=== PATIENT | male | born 1960 | race Asian ===

== ENCOUNTER 2018-04-28 19:29 | Emergency (ER) | payer MEDICAID ==
[~2018-04-28] VITALS: Ht 134.6 cm; Wt 68.0 kg
[~2018-04-28 19:29] MED LIST: DOXY100T2 PO; ESOM40CA30 PO
[2018-04-28 19:34] VITALS: BP 171/94
[2018-04-28] MEDS ORDERED: acetaminophen 325mg tablet PO ONE (20:30)
[2018-04-28] MEDS ORDERED: ketorolac trometh inj. 60 MG/2 ML VIAL IM ONE (20:30)
[2018-04-28] MEDS ORDERED: LIDOcaine 5% patch TP ONE (20:30)
[2018-04-28] MEDS ORDERED: cyclobenzaprine 10mg tablet PO ONE (20:35)
[2018-04-28 21:00] LABS: CLARITY,URINE CLEAR (Clear); COLOR,URINE YELLOW (Yellow); GLUCOSE, URINE NEGATIVE (Neg); KETONES,URINE NEGATIVE (Neg); LEUKOCYTE ESTERASE ,URINE NEGATIVE (Neg); NITRITES, URINE NEGATIVE (Neg); OCCULT BLOOD,URINE TRACE-INTACT (Neg); PH,URINE 6.5 (4.8-8.0); PROTEIN,URINE NEGATIVE (Neg); UROBILINOGEN,URINE 0.2 E.U/dL (0.2-1.0)
[2018-04-28 21:01] LABS: UA COLLECTION TYPE CLN CATCH MIDSTREAM
[2018-04-28 21:07] LABS: SQUAMOUS EPITHELIAL CELL,UR FEW /LPF (FEW)
[2018-04-28 21:08] LABS: BACTERIA,URINE NONE SEEN /HPF (Neg); RBC,URINE 0-2 /HPF (0-2); WBC,URINE 0-4 /HPF (0-4)
[2018-04-28] MEDS ORDERED: LIDO700A32 TP (21:24)
[2018-04-28] MEDS ORDERED: CYCL-1 PO (21:24)
== END 2018-04-28 21:44 | disposition home or self-care (01) ==
LOC: ER 19:30
DX: M54.5 Low back pain (principal); I10 Essential (primary) hypertension; Z88.0 Allergy status to penicillin
CPT/HCPCS: 81001; 96372; 99283; J1885

== ENCOUNTER 2021-02-02 06:55 | Day surgery (SDC) | payer MEDICAID ==
[2021-01-26 10:40] LABS: BASOPHILS # (AUTO) 0.1 X10'3 (0-0.2); BASOPHILS % (AUTO) 0.9 % (0-1); EOSINOPHILS # (AUTO) 0.2 X10'3 (0-0.9); LYMPHOCYTES # (AUTO) 2.1 X10'3 (1.1-4.8); LYMPHOCYTES % (AUTO) 30.3 % (21-51); MEAN CORPUSCULAR HEMOGLOBIN 30.4 PG (27.0-31.0); MEAN CORPUSCULAR HGB CONC 33.7 g/dL (33.0-36.5); MEAN CORPUSCULAR VOLUME 90.1 FL (78-98); MONOCYTES # (AUTO) 0.8 X10'3 (0-0.9); MONOCYTES % (AUTO) 11.5 % (2-12); NEUTROPHILS # (AUTO) 3.8 X10'3 (1.8-7.7); NEUTROPHILS % (AUTO) 54.3 % (42-75); PRE OP HEMATOCRIT 48.5 % (42.0-52.0); PRE OP HEMOGLOBIN 16.4 g/dL (14.0-17.9); PRE OP PLATELET COUNT 224 X10'3 (140-440); RED BLOOD COUNT 5.39 X10'6 (4.70-6.10); RED CELL DISTRIBUTION WIDTH 14.1 % (11.5-14.5)
[2021-01-26 10:55] LABS: ALBUMIN 3.5 G/DL (3.4-5.0); ALKALINE PHOSPHATASE 68 IU/L (46-116); BLOOD UREA NITROGEN 14 MG/DL (7-18); BUN/CREATININE RATIO 15.1 (5.4-32.0); CALCIUM 8.6 MG/DL (8.5-10.1); CHLORIDE 106 MMOL/L (99-107); CREATININE 0.93 MG/DL (0.60-1.10); PRE OP ALT 30 U/L (30-65); PRE OP ANION GAP 8 (8-16); PRE OP AST 22 U/L (10-37); PRE OP BILIRUB, TOTAL 0.6 MG/DL (0.0-1.0); PRE OP GLUCOSE 104 MG/DL (70-104); PRE OP POTASSIUM 3.6 MMOL/L (3.4-5.1); PRE OP SODIUM 143 MMOL/L (135-145); eGFR 83 ML/MIN
[2021-01-26 11:05] LABS: TOTAL PROTEIN 7.1 G/DL (6.4-8.2)
[~2021-02-02] VITALS: Ht 152.4 cm; Wt 61.6 kg
[2021-02-02] VITALS (13 sets, daily range): BP systolic 140–174; BP diastolic 72–101
[~2021-02-02 06:55] MED LIST changes: -DOXY100T2 PO; -ESOM40CA30 PO; +GABA600T13 PO; +IBUP-1984 PO; +KEN0.1O TP; +OMEP-50 PO; +SERT-433 PO; +albuterol 2.5 MG/3 ML nebule NEB PRN; +cefazolin/dext.iso 2gm/100ml IV ONE; +famotidine 20mg tablet PO ONE; +ringers solution, lacted 1,000 ML IV SCH
[2021-02-02] MEDS ORDERED: morphine 2 MG/ML inj. syringe IV PRN (09:00)
[2021-02-02] MEDS ORDERED: ondansetron/PF 4mg/2ml inj IV PRN (09:00)
[2021-02-02] MEDS ORDERED: ringers solution, lacted 1,000 ML IV SCH (09:00)
[2021-02-02] MEDS ORDERED: proCHLORperazine 10 MG/2 ml inj IV PRN (09:00)
[2021-02-02] MEDS ORDERED: morphine 4 MG/ML inj SYRINge IV PRN (09:00)
[2021-02-02] MEDS ORDERED: meperidine/PF 25mg/ml syringe IV PRN ×3 (09:00)
[2021-02-02] MEDS ORDERED: LIDOcaine 1% 30ml preserv. free vial ONE (09:31)
[2021-02-02] MEDS ORDERED: BUPIVAcaine/PF 2.5mg/ml (0.25%) 10ml vial ONE (09:31)
[2021-02-02] MEDS ORDERED: sevoflurane 250ml liquid IH ONE (09:46)
[2021-02-02] MEDS ORDERED: midazolam 1 mg/ML 2ml injection ONE (09:48)
[2021-02-02] MEDS ORDERED: propofol inj 20 ML IV ONE (09:48)
[2021-02-02] MEDS ORDERED: fentaNYL/PF 50MCG/1 ML 2ML syringe ONE (09:48)
[2021-02-02] MEDS ORDERED: rocuronium 10mg/ml inj IV ONE (09:48)
[2021-02-02] MEDS ORDERED: ondansetron/PF 4mg/2ml inj ONE (10:50)
[2021-02-02] MEDS ORDERED: dexamethasone sod phosphate 4mg/ml inj. ONE (10:50)
[2021-02-02] MEDS ORDERED: neostigmine methylsulfate 1 MG/ML 10ml vial ONE (10:51)
[2021-02-02] MEDS ORDERED: glycopyrrolate 0.2mg/ml inj ONE (10:51)
[2021-02-02] MEDS ORDERED: HYDROcodone/acetaminophen 5mg/325mg tablet PO PRN ×2 (10:55)
--- NOTE | 2021-02-02 10:56 | NUR ---
Received from OR via [facility] IN STABLE CONDITION , accompanied by Anesthesiologist and MANAGER PHILOSOPHY report given by MANAGER PHILOSOPHY AND Anesthesiolgist. Addendum: 02/02/21 at 1120 by Vivienne Wells RN Amended: Links added.
--- NOTE | 2021-02-02 12:56 | NUR ---
PATIENT DISCHARGED FROM PACU IN STABLE CONDITION AFTER DISCHARGE INSTRUCTIONS GIVEN. PATIENT LEFT FACILITY VIA WHEELCHAIR WITH RN. Addendum: 02/02/21 at 1319 by Vivienne Wells RN Amended: Links added.
== END 2021-02-02 12:56 | disposition home or self-care (01) ==
LOC: PAS 06:55
PROVIDERS: ATTEND Surgery
DX: K40.20 Bilateral inguinal hernia, without obstruction or gangrene, not specified as recurrent (principal); F17.210 Nicotine dependence, cigarettes, uncomplicated; Z88.0 Allergy status to penicillin; K21.9 Gastro-esophageal reflux disease without esophagitis; F32.9 Major depressive disorder, single episode, unspecified; Z79.899 Other long term (current) drug therapy; Z98.890 Other specified postprocedural states
CPT/HCPCS: 36415; 49650; 80053; 82948; 85025; 93005; C1781; J1100; J2001; J2250; J2405; J2704; J2710; J3010; J3490; S2900; U0003; U0005; Z7506; Z7508; Z7512; A4215; A4618; J7120